=== PATIENT | female | born 1990 | race African-American/Black ===

== ENCOUNTER 2021-10-21 10:16 | Emergency (ER) | payer BC, OTHER ==
[2021-10-21 10:22] VITALS: BP 117/73; PULSE 113; TEMP 100; BMI 21.9
[2021-10-21] MEDS ORDERED: DEXAMETHASONE LIQUID 0.5 MG/5 ML PO ONE (11:19)
[2021-10-21] MEDS ORDERED: IBUPROFEN 600 MG TABLET (FP) PO ONE ×2 (11:19→11:42)
[2021-10-21] MEDS ORDERED: guaiFENesin/D-METHORPHAN HB 10 ML UNIT-DOSE CUPS PO ONE (11:20)
[2021-10-21] MEDS ORDERED: guaiFENesin/D-METHORPHAN HB 10 ML UNIT-DOSE CUPS ONE (11:42)
[2021-10-21] MEDS ORDERED: DEXAMETHASONE SOD PHOSPHATE 10 MG/1 ML VIAL ONE (11:42)
[2021-10-23 04:06] LABS: SARS-CoV-2 NAA Detected (Not Detected)
== END 2021-10-21 13:02 | disposition home or self-care (01) ==
LOC: JCOVINFU 10:16
DX: R51.9 Headache, unspecified (principal); R05.1 Acute cough; R09.81 Nasal congestion
CPT/HCPCS: 87651; 87804; 99283-25; C9803-CS; U0003; U0005